=== PATIENT | male | born 1980 | race African-American/Black ===

== ENCOUNTER 2020-11-12 13:51 | Emergency (ER) | payer SELFPAY ==
[~2020-11-12] VITALS: Ht 190.5 cm; Wt 100.7 kg
[2020-11-12 14:25] VITALS: BP 143/96
[2020-11-12] MEDS ORDERED: ERYT1OIN6 OS (14:59)
[2020-11-12] MEDS ORDERED: OLOP2.5D12 EACHEYE (14:59)
[2020-11-12] MEDS ORDERED: CLIN150C15 PO (14:59)
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
[2020-11-12] MEDS ORDERED: ERYTHROMYCIN 0.5% OPHTH OINTMENT 1GM TUBE. OS ONE (15:00)
== END 2020-11-12 15:32 | disposition home or self-care (01) ==
LOC: ER 13:51
DX: H10.13 Acute atopic conjunctivitis, bilateral (principal); L53.9 Erythematous condition, unspecified; F17.200 Nicotine dependence, unspecified, uncomplicated
CPT/HCPCS: 99283

== ENCOUNTER → 2021-12-14 | Outpatient (CLI) | payer MEDICAID ==
[~2021-12-14] MED LIST: CLIN150C16 PO; ERYT1OIN6 OS; OLOP2.5D12 EACHEYE
--- NOTE | 2021-12-14 15:58 | RAD ---
Exam Date: 12/14/2021 2:06 PM XR CHEST 2V Indication: Reason: CHRONIC COUGH / Spl. Instructions: / History: . FINDINGS/ IMPRESSION: The cardiac silhouette and pulmonary vasculature are within normal limits. There is no focal consolidation, pleural effusion or pneumothorax. The visualized osseous structures are intact. Electronically signed by: Chacho Rocha MD (12/14/2021 3:55 PM) [id number]
== END ==
LOC: RAD 13:49
PROVIDERS: ATTEND Family Medicine
DX: R05.3 Chronic cough (principal)
CPT/HCPCS: 71046